=== PATIENT | female | born 1940 | race Hispanic/Latino ===

== ENCOUNTER 2018-09-10 10:00 | Emergency (ER) | payer MEDICARE ==
--- NOTE | 2018-09-10 10:17 | C.PDOC ---
History Of Present Illness 78 year old female presents to ED with complaint of vertigo-like dizziness for the past 2 weeks. Patient describes the dizziness as intermittent and worse when she is in the supine position. Patient also states that the dizziness is associated with position change. Patient was given outpatient MRI prescription by ophthalmology, MRI is still pending. Patient is currently asymptomatic. She denies experiencing headache, nausea, and vomiting. PERSIST VERTIGO-LIKE DIZZY X 2 WEEKS. INTERMIT, WORSE WHEN SUPINE. ?ASSOC W POSITION CHANGE. NO ORTIZ, [place]. GIVEN OUTPT MRI RX BY [facility], PENDING TBD. CURERNTLY ASYMPT EXAM NAD HEENT NO NYSTAGMUS GAIT STEADY NO INDUCIBLE VERTIGO NEURO NO FOCAL DEF CV RRR REMAINDER NEG MDM OUTPT MRI RX 08/25. FAMILY STATES PENDING TO SCHEDULE MRI APPT. Time Seen by Provider: 09/10/18 10:14 Chief Complaint (Nursing): Dizziness/Lightheaded History Per: Patient History/Exam Limitations: no limitations Onset/Duration Of Symptoms: Intermittent Episodes, Other (2 weeks) Current Symptoms Are (Timing): Still Present Activity At Onset Of Symptoms: Lying Past Medical History Reviewed: Historical Data, Nursing Documentation, Vital Signs Vital Signs: Last Vital Signs Temp 98.2 F 09/10/18 10:01 Pulse 75 09/10/18 10:01 Resp 18 09/10/18 10:01 BP 161/70 H 09/10/18 10:01 Pulse Ox 97 09/10/18 10:01 - Medical History PMH: No Chronic Diseases Surgical History: No Surg Hx Family History: States: Unknown Family Hx - Social History Hx Alcohol Use: No Hx Substance Use: No - Immunization History Hx Tetanus Toxoid Vaccination: No Hx Influenza Vaccination: No Hx Pneumococcal Vaccination: No Review Of Systems Constitutional: Negative for: Fever, Chills, Weakness Eyes: Negative for: Vision Change Respiratory: Negative for: Shortness of Breath Gastrointestinal: Negative for: Nausea, Vomiting Musculoskeletal: Negative for: Back Pain Neurological: Positive for: Dizziness (vertigo-like). Negative for: Weakness, Numbness, Headache Physical Exam - Physical Exam Appears: Well, Non-toxic, No Acute Distress Skin: Normal Color, Warm, Dry Head: Atraumatic, Normacephalic Eye(s): bilateral: Other (no nystagmus) Neck: Normal ROM, Supple Chest: Symmetrical, No Deformity Cardiovascular: Rhythm Regular, No Murmur Respiratory: No Accessory Muscle Use, No Rales, No Rhonchi, No Wheezing Gastrointestinal/Abdominal: Soft, No Tenderness Extremity: Capillary Refill (<2 seconds) Extremity: Bilateral: Atraumatic, Normal Color And Temperature Pulses: Left Radial: Normal, Right Radial: Normal Neurological/Psych: Oriented x3, Normal Speech, Normal Cognition, Normal Motor, Normal Sensation Gait: Steady (no inducible vertigo) ED Course And Treatment - Laboratory Results Result Diagrams: 09/10/18 10:46 09/10/18 10:46 ECG: Interpreted By Me ECG Rhythm: Sinus Rhythm Interpretation Of ECG: TWI V4,6 INTERVALS WNL NO PRIOR Rate From EC O2 Sat by Pulse Oximetry: 97 Pulse Ox Interpretation: Normal - Radiology CXR: Interpreted by Me, Viewed By Me CXR Interpretation: Yes: No Acute Disease Nexus Criteria: Negative - CT Scan/US Head CT Other Rad Studies (CT/US): Interpreted By Me, Read By Radiologist CT/US Interpretation: Accession No. : [id number]. Patient Name / ID : PALMA Weathers / [id number]. Exam Date : 09/10/2018 10:56:57 ( Approved ). Study Comment : Sex / Age : F / 78Y. Creator : Shereen Handy. Dictator : Barney Arreola MD. Geography Department Chair : Side Trimmer : Barney Arreola MD. Approver2 : Report Date : 09/10/2018 11:20:29. My Comment : . Date of service: 09/10/2018. PROCEDURE: CT HEAD WITHOUT CONTRAST. HISTORY: DIZZY. COMPARISON: None available. TECHNIQUE: Axial computed tomography images were obtained through the head/brain without intravenous contrast. Radiation dose: Total exam DLP = 1021.57 mGy-cm. This CT exam was performed using one or more of the following dose reduction techniques: Automated exposure control, adjustment of the mA and/or kV according to patient size, and/or use of iterative reconstruction technique. FINDINGS: HEMORRHAGE: No acute parenchymal, subarachnoid or extra-axial hemorrhage. BRAIN: Minor chronic periventricular white matter ischemic changes seen extending peripherally into the deep white matter both cerebral hemispheres. Note that the possibility of a small hyperacute infarct cannot be excluded based on this exam. Mild generalized volume loss. No obvious parenchymal nor extra- axial mass or collection seen on this noncontrast study. Vascular calcification s both carotid siphons. VENTRICLES: No obstructive hydrocephalus. CALVARIUM: Unremarkable. Calvarium intact. There is a few small elliptical shaped calcifications in the right frontal subarachnoid space arising from the internal table. Findings probably represent simple dural base calcifications. PARANASAL SINUSES: The visualized paranasal sinuses are well-developed and currently well-aerated. MASTOID AIR CELLS: Unremarkable as visualized. No inflammatory changes. OTHER FINDINGS: None. IMPRESSION: No acute intracranial hemorrhage. Mild chronic white matter ischemic changes. Mild generalized volume loss. Progress Note: Head CT, EKG, and CXR ordered for patient. Labs ordered for patient with troponin. Patient given Antivert PO. Progress - Re-Evaluation Re-evaluation Note: 09/10/18 13:01 SP ANTIVERT FEELS BETTER. STEADY GAIT, NO ACUTE DEF. ADVISED OUTPT MRI PRESCRIBED BY JOSÉ MIGUEL WATTS OPTGENOVEVA/PMD - Data Reviewed Data Reviewed: Lab, Diagnostic imaging, EKG Disposition Counseled Patient/Family Regarding: Studies Performed, Diagnosis, Need For Followup, Rx Given - Disposition Referrals: YOUR,PMD [Other] Disposition: HOME/ ROUTINE Disposition Time: 12:59 Condition: IMPROVED Prescriptions: Meclizine [Antivert] 25 mg PO Q6 PRN #12 tab PRN Reason: Dizziness Instructions: Vertigo (a Type of Dizziness) (DC) Forms: [employer] (Nicaraguan) - Clinical Impression Clinical Impression: Vertigo - Scribe Statement The provider has reviewed the documentation as recorded by the Scribe (Machelle Milligan) All medical record entries made by the Scribe were at my direction and personally dictated by me. I have reviewed the chart and agree that the record accurately reflects my personal performance of the history, physical exam, m edical decision making, and the department course for this patient. I have also personally directed, reviewed, and agree with the discharge instructions and disposition.
[2018-09-10 10:50] LABS: BASO % 0.4 % (0.0-2.0); EOS # 0.1 K/uL (0.0-0.7); LYMPH % 16.7 % (20.0-40.0); MEAN CELL VOLUME 90.6 fL (81.0-99.0); MEAN CORPUSCULAR HEMOGLOBIN 30.6 pg (27.0-31.0); MEAN CORPUSCULAR HGB CONC 33.8 g/dL (33.0-37.0); MEAN PLATELET VOLUME 8.4 fL (7.2-11.7); MONO # 0.3 K/uL (0.0-0.8); MONO % 5.7 % (0.0-10.0); NEUT # 4.6 K/uL (1.8-7.0); NEUT % 76.2 % (50.0-75.0); NRBC % 0.1 % (0.0-2.0); RBC 5.2 Mil/uL (3.80-5.20); RED CELL DISTRIBUTION WIDTH 14.2 % (11.5-14.5)
[2018-09-10 11:09] LABS: ALB/GLOB RATIO 1.3 (1.0-2.1); ALBUMIN 4.1 g/dL (3.5-5.0); ALT/SGPT 18 U/L (9-52); AST/SGOT 22 U/L (14-36); BLOOD UREA NITROGEN 14 mg/dL (7-17); GFR NON-AFRICAN AMERICAN > 60
--- NOTE | 2018-09-10 11:12 | RAD ---
Date of service: 09/10/2018 PROCEDURE: CHEST RADIOGRAPH, 1 VIEW HISTORY: Dizziness COMPARISON: None available. FINDINGS: LUNGS: The lungs are well inflated and clear. PLEURA: No pneumothorax or pleural effusion. CARDIOVASCULAR: The heart is normal in size. No aortic atherosclerotic calcifications present. OSSEOUS STRUCTURES: Within normal limits for the patient's age. VISUALIZED UPPER ABDOMEN: Normal. OTHER FINDINGS: None. IMPRESSION: No active pulmonary disease.
--- NOTE | 2018-09-10 11:48 | CT ---
Date of service: 09/10/2018 PROCEDURE: CT HEAD WITHOUT CONTRAST. HISTORY: DIZZY COMPARISON: None available. TECHNIQUE: Axial computed tomography images were obtained through the head/brain without intravenous contrast. Radiation dose: Total exam DLP = 1021.57 mGy-cm. This CT exam was performed using one or more of the following dose reduction techniques: Automated exposure control, adjustment of the mA and/or kV according to patient size, and/or use of iterative reconstruction technique. FINDINGS: HEMORRHAGE: No acute parenchymal, subarachnoid or extra-axial hemorrhage. BRAIN: Minor chronic periventricular white matter ischemic changes seen extending peripherally into the deep white matter both cerebral hemispheres. Note that the possibility of a small hyperacute infarct cannot be excluded based on this exam. Mild generalized volume loss No obvious parenchymal nor extra-axial mass or collection seen on this noncontrast study. Vascular calcifications both carotid siphons. VENTRICLES: No obstructive hydrocephalus CALVARIUM: Unremarkable. Calvarium intact. There is a few small elliptical shaped calcifications in the right frontal subarachnoid space arising from the internal table. Findings probably represent simple dural base calcifications. PARANASAL SINUSES: The visualized paranasal sinuses are well-developed and currently well-aerated. MASTOID AIR CELLS: Unremarkable as visualized. No inflammatory changes. OTHER FINDINGS: None. IMPRESSION: No acute intracranial hemorrhage. Mild chronic white matter ischemic changes. Mild generalized volume loss.
[2018-09-10 13:42] VITALS: BP 147/73; PULSE 77; RESP 20; TEMP 98.3; O2SAT 96
--- NOTE | 2018-09-11 20:04 | CARD ---
APPROVED REPORT Date of service: 09/10/2018 EKG Measurement Heart [id number] ID [id number] <Conclusion> Normal sinus rhythm Left ventricular hypertrophy with repolarization abnormality Abnormal ECG
== END 2018-09-10 13:20 | disposition home or self-care (01) ==
LOC: C.ER 10:00
DX: R42 Dizziness and giddiness (principal)